=== PATIENT | female | born 1940 | race Caucasian/White ===

== ENCOUNTER 2019-01-20 19:45 | Emergency (ER) | payer OTHER ==
[~2019-01-20] VITALS: Ht 165.1 cm; Wt 63.5 kg
[2019-01-20 19:56] VITALS: Ht 165.1 cm; Wt 63.5 kg
[2019-01-20 22:20] VITALS: BP 174/81
== END 2019-01-20 22:20 | disposition home or self-care (01) ==
LOC: ED 19:45
DX: R51 Headache (principal); I10 Essential (primary) hypertension; Z98.890 Other specified postprocedural states

== ENCOUNTER 2019-02-02 00:41 | Emergency (ER) | payer OTHER ==
[~2019-02-02] VITALS: Ht 165.1 cm; Wt 68.6 kg
[2019-02-02 01:51] VITALS: BP 123/78
== END 2019-02-02 01:57 | disposition home or self-care (01) ==
LOC: ED 00:41
DX: L50.0 Allergic urticaria (principal); I10 Essential (primary) hypertension; F17.210 Nicotine dependence, cigarettes, uncomplicated; Z98.890 Other specified postprocedural states
CPT/HCPCS: 99406; J0171; J1200; J2930

== ENCOUNTER 2019-04-27 11:40 | Inpatient (IN) | payer OTHER ==
[~2019-04-27] VITALS: Ht 165.1 cm; Wt 68.0 kg
[2019-04-27 11:49] VITALS: Ht 165.1 cm; Wt 68.0 kg
--- NOTE | 2019-04-27 13:40 | NUR ---
PT MOVED FROM H7 TO BED 5 FOR EXAM, PT WAS BROUGHT IN BY DTR FOR EXAM PT HAS A BRUISE NOTED ON FOREHEAD, PT DOESNT REMEMBER IF SHE FELL, PT IS PRIMARILY HERE FOR LEFT GROIN PAIN PER DTR SHE DID NOT FALL BUT SHE NORMALLY WALKS ON A NORMAL BASIS, SHE STOPPED WALKING ABOUT 2 DAYS AGO SHE HAS BEEN TRYING TO GET AROUND AT HOME WITH LIMITATIONS DUE TO LEFT GROIN PAIN. NO SHORTENING NO ROTATION NOTED TO HIPS. PT'S DTR AT HER SIDE, HER CONCERNS ARE THAT HER MOTHER IS ACTING NORMAL , THE DTR SPOKE WITH DR GATES. NEW ORDERS FOR CT OF HEAD WITH LABS TO BE COLLECTED AND XRAYS. PT IS COMFORTABLE AT THIS TIME C/L IN REACH SIDERAILS UP FOR SAFETY.
[2019-04-27 14:16] LABS: BASOPHIL % 0.6 % (0-2); PLATELET COUNT 399 x10^3mcL (130-400)
[2019-04-27 14:21] LABS: RED CELL DISTRIBUTION WIDTH 17.2 % (11.5-14.5)
[2019-04-27 14:22] LABS: CALCIUM 9.3 mg/dL (8.5-10.1); CARBON DIOXIDE 29.1 mmol/L (21-32); CHLORIDE SERUM 94 mmol/L (98-107); CREATININE SERUM 1.2 mg/dL (0.6-1.0); GLUCOSE SERUM 96 mg/dL (74-106); POTASSIUM SERUM 4.1 mmol/L (3.5-5.1); SODIUM SERUM 129 mmol/L (136-145)
[2019-04-27 14:31] LABS: ALBUMIN 3.6 g/dL (3.4-5.0); ALKALINE PHOSPHATASE 82 U/L (46-116); ALT/SGPT 52 U/L (14-59); AST/SGOT 34 U/L (15-37); BILIRUBIN TOTAL 1.3 mg/dL (0.20-1.00); TOTAL PROTEIN, SERUM 7.3 g/dL (6.4-8.2)
--- NOTE | 2019-04-27 14:47 | NUR ---
PT TO CT SCAN, TRIED 1 IV AND WAS UNSUCCESSFUL. WILL TRY AGAIN AFTER PT RETURNS FROM CT
[2019-04-27 15:08] LABS: UA SPECIFIC GRAVITY 1.025 (1.005-1.035); microscopic required? YES; urine erythrocyte NEGATIVE (NEGATIVE)
[2019-04-27] MEDS ORDERED: PANTOPRAZOLE SO20 M1 (15:52)
[2019-04-27] MEDS ORDERED: LISINOPRIL2.5 MG (15:52)
[2019-04-27] MEDS ORDERED: BUPROPION HCL100 M1 (15:53)
[2019-04-27] MEDS ORDERED: LEXAPRO5 M1 (15:53)
--- NOTE | 2019-04-27 16:29 | NUR ---
ECHO CARDIOGRAM AT BEDSIDE
[2019-04-27 16:59] LABS: CHOLESTEROL/HDL RATIO 2.4
[2019-04-27 17:00] LABS: FREE T4 1.21 ng/dL (0.76-1.46); T3 TOTAL 1.22 ng/mL; T4(THYROXINE) 8.5 ug/dL (4.7-13.3)
[2019-04-27 17:38] VITALS: BP 136/61
--- NOTE | 2019-04-27 17:48 | NUR ---
RECEIVED PT FROM ER, PT ADMIT FOR LEFT HIP FX, ALCO, PT IS A/O X4, VERBAL RESPONSIVE. LUNG SOUND CLEAR BILATERAL, NO COUGH, NO SOB, PT IS ON TELE 15, NSR, DENY ANY CHEST PAIN OR DISCOMFORT, BOWEL SOUND PRESENT ALL 4 QUADRANTS, NO DISTENTION, NO TENDER. PEDAL PULSE PRESENT BOTH FEET, DENY ANY NUMBNESS OR TINGLING ON THE LEFT TOES. C/O LEFT HIP PAIN 10/10, IV AT LEFT WRIST, NO LEAKING, NO INFILTRATION. ALL ADLS ASSIST, ALL NEED MET, CALL LIGHT IN REACH, WILL CONTINUE TO MONITOR.
--- NOTE | 2019-04-27 18:20 | NUR ---
PATIENT IN BED, AAOX4. NO ACUTE RESP DISTRESS NOTED. PAIN TO LLE AGGRAVATED BY MOVING. DENIES NEED FOR PAIN MEDICATION AT THIS TIME. FAMILY AT BEDSIDE. SALINE LOCK. IV INTACT AND PATENT. NO ERYTHEMA/SWELLING NOTED. SAFETY PRECAUTION IN PLACE. CALL LIGHT WITHIN REACH. FAMILY AT BEDSIDE. WILL ENDORSE TO DRYWALL APPLICATOR NURSE.
--- NOTE | 2019-04-27 19:16 | NUR ---
PATIENT STABLE. UPDATE REPORT GIVEN TO KB PERSAUD.
--- NOTE | 2019-04-27 19:17 | NUR ---
RECEIVED PT FROM AM SHIFT. PT IS A/O X4, VERBAL RESPONSIVE. LUNG SOUND CLEAR BILATERAL, NO COUGH, NO SOB, PT IS ON TELE 15, NSR, DENY ANY CHEST PAIN OR DISCMOFORT, BOWEL SOUND PRESENT ALL 4 QUADRANTS, NO DISTENTION, NO TENDER. PEDAL PULSE PRESENT BOTH FEET, NO EDEMA, PT DENY ANY PAIN AT THIS MOMENT, IV AT LEFT WRIST, DRESSING INTACT, ALL ADLS ASSIST, ALL NEED MET, CALL LIGHT IN REACH, WILL CONTINUE TO MONITOR.
--- NOTE | 2019-04-27 19:44 | NUR ---
[place] DR. PETERS, REGARDING THE UA POSITIVE. REQUEST FOR ATB. WAITING FOR RESPOND.
--- NOTE | 2019-04-27 19:57 | NUR ---
TALKED TO DR. WELLINGTON REGARDING UA RESULT. STATE PT IS ASYMPTOMATIC, NO NEED ATB. WILL CONTINUE TO MONITOR THE PT.
[2019-04-27 20:28] LABS: AMPHETAMINE QUAL UR NONE DETECTED (See below)
[2019-04-27] MEDS ORDERED: RESTORIL15 MG PO (21:14)
[2019-04-27 21:20] VITALS: BP 97/47
--- NOTE | 2019-04-28 01:31 | NUR ---
ENDORSE THE PT TO KB CARRILLO, CHARGE NURSE. PT IS SLEEPING, NO S/S OF RESPIRATORY DISTRESS, NO S/S OF PAIN OR DISCOMFORT, IV AT LEFT WRIST, NO LEAKING,NO INFILTRAITON. WILL CONTINUE TO MONITOR.
--- NOTE | 2019-04-28 04:40 | NUR ---
ASSUMED CARE OF PATIENT. PT ASLEEP AT THIS TIME.
[2019-04-28 05:34] VITALS: BP 103/48
[2019-04-28 06:42] LABS: BASOPHIL % 0.4 % (0-2); PLATELET COUNT 318 x10^3mcL (130-400)
[2019-04-28 07:02] LABS: ALKALINE PHOSPHATASE 167 U/L (46-116); ALT/SGPT 146 U/L (14-59); AST/SGOT 163 U/L (15-37); BILIRUBIN DIRECT 0.45 mg/dL (0.0-0.2); BILIRUBIN TOTAL 1.6 mg/dL (0.20-1.00); CALCIUM 8.4 mg/dL (8.5-10.1); CHLORIDE SERUM 105 mmol/L (98-107); CREATININE SERUM 1.2 mg/dL (0.6-1.0); GLUCOSE SERUM 86 mg/dL (74-106); MAGNESIUM 2.1 mg/dL (1.8-2.4); PHOSPHOROUS 4.1 mg/dL (2.5-4.9); SODIUM SERUM 140 mmol/L (136-145)
[2019-04-28 07:04] LABS: ALBUMIN 2.9 g/dL (3.4-5.0); TOTAL PROTEIN, SERUM 5.9 g/dL (6.4-8.2)
[2019-04-28 07:10] LABS: RED CELL DISTRIBUTION WIDTH 17.1 % (11.5-14.5)
--- NOTE | 2019-04-28 07:20 | NUR ---
MORNING ASSESSMENT COMPLETE. PT AWAKE, ALERT A/OX4. PT ON ROOM AIR WITH NO RESP DISTRESS NOTED. PT ON TELE 15, DENIES CHEST PAIN. IV ACCESS LEFT WRIST CDI INFUSING NS AT 70ML/HR. PERIPHERAL PULSES PALPABLE NO EDEMA NOTED. ACTIVE BS NOTED. PT REPORTS LAST BM SEVERAL DAYS AGO BUT STATES SHE "HASNT BEEN EATING". DENIES ABDOMINAL PAIN. PT REPORTS PAIN TO LEFT HIP TOLERABLE AT THIS TIME UNLESS SHE MOVES. PT REFUSES PAIN MEDS AT THIS TIME. PT REPORTS NOT WANTING TO "GET HOOKED". PT BEDREST AT THIS TIME, SURGERY SCHEDULED FOR TOMORROW. SAFETY MEASURES IN PLACE, BED LOW AND LOCKED. CALL LIGHT WITHIN REACH.
--- NOTE | 2019-04-28 08:20 | NUR ---
DUE MEDICATIONS ADMINISTERED ORDERED. PT TOLERATED WELL. PT REFUSES PAIN MEDICINE AT THIS TIME.
[2019-04-28 09:19] VITALS: BP 125/56
--- NOTE | 2019-04-28 11:24 | NUR ---
PT CLEANED AND REPOSITIONED WITH PERSONALIZED LIVING MANAGER NURSE FOR COMFORT. FAMILY AT BEDSIDE. SAFETY MAINTAINED.
[2019-04-28 13:23] VITALS: BP 118/47
--- NOTE | 2019-04-28 14:57 | NUR ---
ULTRASOUND AT BEDSIDE AT THIS TIME
--- NOTE | 2019-04-28 16:03 | NUR ---
PT UPSET COMPLAINING OF KNEE PAIN/HIP PAIN WHEN MOVING. NORCO ADMINISTERED ORDERED PO PRN. WILL MONITOR.
[2019-04-28 17:45] VITALS: BP 130/77
--- NOTE | 2019-04-28 18:02 | NUR ---
PT REPORTS RELIEF AFTER ADMINISTRATION OF NORCO. PT REPORTS PAIN IS TOLERABLE WHEN NOT MOVING. CONSENT SIGNED FOR SURGERY AT THIS TIME. DAUGHTER AT BEDSIDE. SAFETY MAINTAINED.
--- NOTE | 2019-04-28 18:23 | NUR ---
PT STABLE AT THIS TIME. ALL NEEDS TENDED TO THROUGHOUT SHIFT. WILL CONTINUE TO MONITOR AND ENDORSE CARE TO TECHNICIAN TERMINAL AND REPEATER.
--- NOTE | 2019-04-28 19:25 | NUR ---
RECEIVED PT IN BED RESTING QUIETLY. SHE IS ALERT, ORIENTED X4. NO SOB ON ROOM AIR. BOWEL SOUNDS ACTIVE. PT STATED SHE FEELS OKAY LONG SHE DOES NOT MOVE A LOT. NO EDEMA NOTED. W/ IVF NS AT 70 CC/HR VIA LT WRIST. CALL LIGHT W/IN REACH.
[2019-04-28 21:14] VITALS: BP 113/53
--- NOTE | 2019-04-28 22:03 | NUR ---
PT MEDICATED W/ RESTORIL 30 MG PO FOR SLEEP.
--- NOTE | 2019-04-28 23:38 | NUR ---
PT APPEARS TO BE SLEEPING COMFORTABLY. NO S/S OF DISTRESS. SHE IS EASILY AROUSABLE.
--- NOTE | 2019-04-29 05:30 | NUR ---
PT TEARFUL AT TIMES SAYING SHE JUST WANTS THE SURGERY TO BE OVER. STAYED AND COMFORTED PT.
--- NOTE | 2019-04-29 05:42 | NUR ---
PT RESTING QUEITLY IN BED. SHE SLEPT AT LONG INTERVALS. PT W/ PAIN WHEN SHE MOVES BUT REFUSES PAIN MEDS. SHE IS KEPT NPO FOR SX TODAY. IVF NS INFUSING WELL AT 70 CC/HR VIA LT WRIST. ALL NEEDS ATTENDED TO.
[2019-04-29 06:00] LABS: BASOPHIL % 0.2 % (0-2); PLATELET COUNT 348 x10^3mcL (130-400)
[2019-04-29 06:23] LABS: CALCIUM 8.5 mg/dL (8.5-10.1); CARBON DIOXIDE 28.6 mmol/L (21-32); CHLORIDE SERUM 106 mmol/L (98-107); GLUCOSE SERUM 103 mg/dL (74-106); MAGNESIUM 1.9 mg/dL (1.8-2.4); PHOSPHOROUS 3.6 mg/dL (2.5-4.9); POTASSIUM SERUM 4.1 mmol/L (3.5-5.1); SODIUM SERUM 143 mmol/L (136-145)
[2019-04-29 06:33] VITALS: BP 156/61
[2019-04-29 07:02] LABS: RED CELL DISTRIBUTION WIDTH 17.3 % (11.5-14.5)
--- NOTE | 2019-04-29 07:15 | NUR ---
RECEIVED PT FROM NIGHT NURSE. PT IS LAYING DOWN IN BED WITH HOB UP RESTING. PT LOOKS TO BE IN NO ACUTE DISTRESS AT THIS TIME AND STATES HAVING PAIN TO THE HIP ONLY WHEN MOVING. TELE MONITOR 15 PRESENT SHOWING NSR. IV SITE PATENT WITH NO SIGNS OR ERYTHEMA OR SWELLING WITH IV FLUIDS INFUSING. PT REQUESTING TO USE BEDPAN. ASSISTED PT WITH GETTING ONTO BEDPAN TO VOID. CALL LIGHT WITHIN REACH. WILL CONTINUE TO MONITOR.
--- NOTE | 2019-04-29 08:07 | NUR ---
OR NURSE AT BEDSIDE TAKING PT DOWN FOR SURGERY. FAMILY MEMBER AT BEDSIDE. TELE AWARE.
--- NOTE | 2019-04-29 10:25 | NUR ---
PT RETURNED FROM OR. PT LOOKS TO BE IN NO ACUTE DISTRESS AT THIS TIME AND DENIES ANY PAIN. DRESSING TO LEFT HIP IS CDI. CURRENT VITALS ARE BP:143/64, HR: 69, RR: 18, TEMP: 98.3, O2: 94% ON ROOM AIR. REORIENTED PT TO UNIT AND ROOM. CALL LIGHT WITHIN REACH. WILL CONTINUE TO MONITOR.
[2019-04-29 10:41] VITALS: BP 143/64
--- NOTE | 2019-04-29 12:00 | NUR ---
PT IS LAYING DOWN IN BED WITH HOB UP. PT LOOKS TO BE IN NO ACUTE DISTRESS AT THIS TIME AND DENIES ANY PAIN. FAMILY MEMBER AT BEDSIDE. SCD IN PLACE. EDUCATED PT ON HIP PRECAUTIONS AND INFORMED PT PHYSCIAL THERAPY WILL BE WORKING WITH HER TOMORROW. PT VERBALIZED UNDERSTANDING. WILL CONTINUE TO MONITOR.
[2019-04-29 12:11] VITALS: BP 133/49
[2019-04-29 15:52] VITALS: BP 125/56
--- NOTE | 2019-04-29 18:00 | NUR ---
PT IV SITE TO LEFT FOREARM IS SORE AND LOOKS TO BE COMING OUT OF THE VEIN. IV FLUSHING FREELY BUT PT COMPLAINING OF PAIN WHEN FLUSHING. NEW IV STARTED 22G TO LEFT WRIST. IV PATENT AND FLUSHING. WILL CONTINUE TO MONITOR.
--- NOTE | 2019-04-29 18:55 | NUR ---
PT IS LAYING DOWN IN BED WITH HOB UP RESTING. PT IS TEARFUL AND STATES THAT SHE IS UNCOMFORTABLE. REPOSTIONED PT. RESPIRATIONS EVEN AND UNLABORED ON ROOM AIR. IV SITE PATENT WITH NO SIGNS OF ERYTHEMA OR SWELLING WITH IV FLUIDS INFUSING. CALL LIGHT WITHIN REACH, PT WATCHING TV AT THIS TIME. WILL ENDORSE TO ONCOMING SHIFT.
--- NOTE | 2019-04-29 19:10 | NUR ---
RECEIVED REPORT FROM ALICJA QUILES. PT IS AAOX4 AND DENIES KUNZ OR DIZZINESS AT THIS TIME. ON TELE #15, SB WITH HR 59. PT DENIES CHEST PAIN OR PRESSURE AT THIS TIME. PT PULSES PALPABLE AND CAP REFILL <3 SEC. PT LUNG SOUNDS CTA ON RA. PT BREATHING EVEN AND UNLABORED. PT ABD SOFT AND NONDISTENDED. PT BOWEL SOUNDS ACTIVE X4. PT DENIES N/V/D AT THIS TIME. PT VOIDS FREELY WITH BEDPAN. PT HAS WEAKNESS TO THE LEFT SIDE 04/29/19 S/P LEFT HIP PINNING. PT HAS DRESSING W/ SUTURE, STAPLE, ADAPTIC, 4X4, TAPE, CDI. PT IV PATENT AND INTACT. CALL LIGHT WITHIN REACH. BED IN LOWEST POSITION. SIDE RAILS X2 UP. WILL CONTINUE TO MONITOR.
[2019-04-29 20:33] VITALS: BP 112/49
--- NOTE | 2019-04-30 00:04 | NUR ---
PT SLEEPING AT THIS TIME. PT BREATHING EVEN AND UNLABORED. NO ACUTE DISTRESS NOTED. CALL LIGHT WITHIN REACH. BED IN LOWEST POSITION. SIDE RAILS X2 UP. WILL CONTINUE TO MONITOR.
--- NOTE | 2019-04-30 02:43 | NUR ---
PT AWAKE WATCHING TV AT THIS TIME. PT DENIES ANY ACUTE DISTRESS AT THIS TIME. ALL NEEDS MET AT THIS TIME. CALL LIGHT WITHIN REACH. BED IN LOWEST POSITION. SIDE RAILS X2 UP. WILL CONTINUE TO MONITOR.
--- NOTE | 2019-04-30 03:52 | NUR ---
PT C/O LEFT HIP PAIN RADIATING TO HER LLE. PER JUN, ADMINISTERED NORCO FOR PAIN. WILL REASSESS IN ONE HOUR. PT ASKED TO USE THE BEDPAN AT THIS TIME. CALL LIGHT WITHIN REACH. BED IN LOWEST POSITION. SIDE RAILS X2 UP. WILL CONTINUE TO MONITOR.
--- NOTE | 2019-04-30 05:04 | NUR ---
PT SLEPT THROUGHOUT MOST OF THE NIGHT. PT COMPLIED WITH NURSING CARE THROUGHOUT THE SHIFT. NO ACUTE DISTRESS NOTED DURING THE SHIFT. PT C/O LEFT HIP AND LLE AND PER MAR, ADMINISTERED NORCO 1X. COMFORT AND SAFETY MEASURES MAINTAINED DURING THE SHIFT. ALL NEEDS AND CONCERNS ADDRESSED. CALL LIGHT WITHIN REACH. BED IN LOWEST POSITION. SIDE RAILS X2 UP. WILL ENDORSE TO DAY SHIFT NURSE. WILL CONTINUE TO MONITOR.
[2019-04-30 05:39] VITALS: BP 104/53
[2019-04-30 07:04] LABS: BASOPHIL % 0.3 % (0-2); PLATELET COUNT 344 x10^3mcL (130-400)
[2019-04-30 07:10] LABS: CALCIUM 8.4 mg/dL (8.5-10.1); CARBON DIOXIDE 26 mmol/L (21-32); CHLORIDE SERUM 107 mmol/L (98-107); CREATININE SERUM 0.9 mg/dL (0.6-1.0); GLUCOSE SERUM 95 mg/dL (74-106); SODIUM SERUM 139 mmol/L (136-145)
[2019-04-30 07:13] LABS: RED CELL DISTRIBUTION WIDTH 16.7 % (11.5-14.5)
--- NOTE | 2019-04-30 07:20 | NUR ---
RECEIVED PATIENT AWAKE/ALERT, C/O HURT TO L LEG, STATED IS TOLERABLE 07/23. TELE #15 SR, HR 65 NOTED. IV TO LW INTACT AND INFUSING NS @ 70ML/HR, POC EXPLAINED. CALL LIGHT WITHIN REACH.
--- NOTE | 2019-04-30 07:29 | NUR ---
ENDORSED CARE TO YOLANDA QUILES. ALL QUESTIONS AND CONCERNS ADDRESSED.
[2019-04-30 08:29] VITALS: BP 155/61
--- NOTE | 2019-04-30 09:38 | NUR ---
PATIENT RESTING IN BED C/O 10/10 PAIN TO L HIP, MEDICATED FOR PAIN W/ MORPHINE 2MG IVP, PT SUGAR AT BEDSIDE SET UP TRAPEZ ORDER, ALL PO MEDS AND ANCEF IVPB INFUSING TO LW PATENT. PATIENT TOLERATED HER PILLS. DTR REMAIN AT BEDSIDE. PT WORKING WITH PATIENT, LEFT PATIENT SITTING UP IN CHAIR. WILL BE BACK TO GET PATIENT BACK TO BED.
--- NOTE | 2019-04-30 11:53 | NUR ---
TELE 15 REMOVED AND GAVE TO CELESTINE, PATIENT RESTING IN BED BED PT ASSIST PATIENT BACK. PER SUGAR PT PATIENT IS MODERATE ASSIST AND RECCOMENDED SNF.
--- NOTE | 2019-04-30 13:14 | NUR ---
PATIENT RESTING IN BED NO C/O PAIN. STUDENT NURSE ASSISTING PATIENT WITH HER PHONE CALL TO HER DTR, NOP DISTRESS NOTED. CALL LIGHT IN REACH.
[2019-04-30 13:15] VITALS: BP 136/48
--- NOTE | 2019-04-30 15:28 | NUR ---
DR. HERNANDEZ SEEN PATIENT AND RECOMMENDED PATIENT TO GO TO REHAB AND DTR WAS AT BEDSIDE AGREE WITH PLAN.
[2019-04-30 16:40] VITALS: BP 161/67
--- NOTE | 2019-04-30 18:14 | NUR ---
PATIENT WAS UPSET AND CRYING, DON'T LIKE THE FOOD ON HER TRAY, PATIENT WANT BURGER PER KITCHEN SERVICE GRILL CLOSE, SEND UP SANDWICH FOR PATIENT, PATIENT STILL DON'T WANT, REQUEST TO TALK TO MANAGER BALANCE, CALL SHELLFISH DREDGE OPERATOR REGARD SODIUM RESTRICT DIET AND PATIENT WANT PIZZA. PER SHELLFISH DREDGE OPERATOR OKAY TO HAVE OUTSIDE FOODS, CALL DTR BISMARK PATIENT WANT PIZZA, CRY AND C/O " I HAVE NOT EAT FOR 3 DAYS AND I AM HUNGRY". DTR BISMARK TALK TO PATIENT ON THE PHONE. PATIENT'S CALM DOWN A BIT. NEEDS MET. CALL LIGHT WITHIN REACH.
--- NOTE | 2019-04-30 19:35 | NUR ---
RECEIVED PT FROM DAY SHIFT RN. PT AAOX4. DENIES KUNZ/DIZZINESS. BREATHING EVEN AND UNLABORED ON RA WITH NO SOB NOTED. MED SURG PT, DENIES CHEST PAIN/PRESSURE. IV LW PATENT. LEFT HIP DRESSING, CDI. PT DENIES PAIN. NO ACUTE DISTRESS NOTED. CALL BUTTON WITHIN REACH. SAFETY PRECAUTIONS IN PLACE. WILL CONTINUE TO MONITOR.
[2019-04-30 21:05] VITALS: BP 150/48
--- NOTE | 2019-05-01 00:46 | NUR ---
PT RESTING. BREATHING EVEN AND UNLABORED. NO SIGNS OF DISTRESS NOTED. CALL BUTTON WITHIN REACH. SAFETY PRECAUTIONS IN PLACE. WILL CONTINUE TO MONITOR.
[2019-05-01 05:16] VITALS: BP 102/55
--- NOTE | 2019-05-01 05:41 | NUR ---
PT SLEPT MOST OF THE NIGHT WITH NO ACUTE DISTRESS NOTED. BREATHING EVEN AND UNLABORED ON RA WITH NO SOB NOTED. IV PATENT, INFUSING WELL. PT DENIES PAIN. MEDICATED PER EMAR. NO ACUTE DISTRESS NOTED. CALL BUTTON WITHIN REACH. SAFETY PRECAUTIONS IN PLACE. WILL CONTINUE TO MONITOR AND ENDORSE CARE TO DAY SHIFT RN.
[2019-05-01 07:00] LABS: PLATELET COUNT 411 x10^3mcL (130-400)
--- NOTE | 2019-05-01 07:04 | NUR ---
RECEIVED REPORT FROM JONNATHAN QUILES. PATIENT RESTING COMFORTABLY IN BED WITH ALL NEEDS MET. IV TO LT WRIST IS PATENT AND INFUSING NS @ 70 ML/HR. NO REDNESS OR PAIN. PT ON ROOM AIR. NO C/O SOB AND NO DISTRESS NOTED. ALL QUESTIONS AND CONCERNS ADDRESSED.
[2019-05-01 07:09] LABS: SODIUM SERUM 142 mmol/L (136-145)
[2019-05-01 07:10] LABS: CALCIUM 8.9 mg/dL (8.5-10.1); CARBON DIOXIDE 28 mmol/L (21-32); CHLORIDE SERUM 107 mmol/L (98-107); CREATININE SERUM 0.9 mg/dL (0.6-1.0); GLUCOSE SERUM 79 mg/dL (74-106)
--- NOTE | 2019-05-01 07:20 | NUR ---
PT AWAKE DENIES PAIN. NO ACUTE DISTRESS NOTED. CALL BUTTON WITHIN REACH. SAFETY PRECAUTIONS IN PLACE. ENDORSED CARE TO DAY SHIFT RN, ALL QUESTIONS ADDRESSED.
[2019-05-01 08:13] VITALS: BP 158/66
[2019-05-01] MEDS ORDERED: ZES10 PO (08:43)
[2019-05-01] MEDS ORDERED: APAP/HYDROCODON1 T13 PO (08:43)
--- NOTE | 2019-05-01 08:58 | NUR ---
DR STEVENSONRI IN TO SEE AND ASSESS PATIENT. PLAN OF CARE DISCUSSED AND ALL PT QUESTIONS AND CONCERNS WERE ADDRESSED. DR ORDERED FOR DRESSING TO BE CHANGED TODAY.
--- NOTE | 2019-05-01 11:40 | NUR ---
IN TO CHANGE DRESSING PER DR HERNANDEZ REQUEST. FOAM TAPE REMOVED, 4X4 REMOVED, OIL EMULSION DRESSING REMOVED. LEG CLEANSED OF IODINE AND NEW OIL EMULSION DRESSING, 4X4, AND FOAM TAPE APPLIED. PT TOLERATED IT WELL AND IS NOW RESTING COMFORTABLY IN BED WITH DAUGHTER AT BEDSIDE.
[2019-05-01 12:50] VITALS: BP 149/53
[2019-05-01 14:09] VITALS: BP 149/53
--- NOTE | 2019-05-01 14:29 | NUR ---
CALLED [facility] AND GAVE REPORT TO NURSE TABITHA. ALL QUESTIONS AND CONCERNS ADDRESSED. TRANSPORTATION TO ARRIVE @ 14:30. PT READY FOR TRANSPORT.
== END 2019-05-01 14:53 | DRG 480 ==
LOC: ED 11:40 → DU 15:21 → MU 04-30 11:49
PROVIDERS: Emergency Medicine; Internal Medicine; Neuromusculoskeletal Medicine, Sports Medicine; ADMIT Family Medicine
PROC: 0QS704Z Reposition Left Upper Femur with Internal Fixation Device, Open Approach (ICD-10-PCS; principal; 2019-04-29 08:30)
DX: S72.002A Fracture of unspecified part of neck of left femur, initial encounter for closed fracture (principal); N17.0 Acute kidney failure with tubular necrosis; N39.0 Urinary tract infection, site not specified; E87.1 Hypo-osmolality and hyponatremia; S00.03XA Contusion of scalp, initial encounter; E87.8 Other disorders of electrolyte and fluid balance, not elsewhere classified; K21.9 Gastro-esophageal reflux disease without esophagitis; F32.9 Major depressive disorder, single episode, unspecified; R74.0 Nonspecific elevation of levels of transaminase and lactic acid dehydrogenase [LDH]; H40.9 Unspecified glaucoma; I10 Essential (primary) hypertension; Z68.23 Body mass index [BMI] 23.0-23.9, adult; Z87.891 Personal history of nicotine dependence; W18.39XA Other fall on same level, initial encounter; Y93.89 Activity, other specified; Y92.018 Other place in single-family (private) house as the place of occurrence of the external cause
CPT/HCPCS: 82652; 83880; 84439; 97116-GP; 97530-GP; G0378; J0690; J1170; J1644; J2270; J2405; J2704; J3010; J3490; J7030; J7120; Q0092